=== PATIENT | male | born 1960 | race Caucasian/White ===

== ENCOUNTER → 2017-05-05 | Outpatient (CLI) | payer OTHER ==
[~2017-05-05] MED LIST: EXCEDRIN; NAPR-688
--- NOTE | 2017-05-06 11:54 | HKNOTE ---
DATE OF SERVICE: 05/05/2017 CHIEF COMPLAINT: Right knee pain. HISTORY OF PRESENT ILLNESS: This is a 56-year-old male who is complaining of chronic right knee luigi n. The pain is severe. He has difficulty performing his activities of daily living. He has difficu lty sitting in a car. He denies any groin or back pain. There is no radiation of the pain. He was previously scheduled for a right knee arthroscopy with Dr. Larry Rae. The pain is on the inside of the right knee. He has occasional locking of his knee. He has occasional instability. GAIT: Nonantalgic gait. No use of assist device. RIGHT KNEE: Neutral alignment, tender over the medial joint line, nontender over the lateral joint line, 0 to 120 degrees range of motion, stable to varus/valgus stress, positive Becka's medially, negative Shobha, negative anterior drawer, negative posterior drawer. Negative pivot shift. Motor strength 5/5 hamstrings, quadriceps, tibialis anterior, gastrocsoleus. Palpable pulses. MRI RIGHT KNEE: From 10/09/2014: There is a tear of the posterior horn of the medial meniscus. No tear is seen in the lateral meniscus. The cruciate ligament and the collateral ligaments are intac t. IMPRESSION: A 56-year-old male with a right knee posterior horn medial meniscus tear. PLAN: I explained to Mr. Olmos that his MRI is from 2-1/2 years ago. We will request authori zation for a new MRI of the right knee. We will also request authorization for a right knee arthros copic partial medial meniscectomy. He will return in 4 weeks. Dictated By: DARLENE PRICE/TANNA Conf#: [id number] DID#: [id number]
== END | disposition home or self-care (01) ==
LOC: HKI 14:02
PROVIDERS: ATTEND Orthopaedic Surgery Adult Reconstructive Orthopaedic Surgery
DX: M23.221 Derangement of posterior horn of medial meniscus due to old tear or injury, right knee (principal)
CPT/HCPCS: G0463

== ENCOUNTER → 2017-07-07 | Outpatient (CLI) | payer OTHER ==
--- NOTE | 2017-07-07 15:35 | HKNOTE ---
DATE OF SERVICE: 07/07/2017 HISTORY OF PRESENT ILLNESS: Mr. Olmos returns today for his preoperative evaluation. He is s cheduled for a right knee arthroscopy on 07/12/2017. Mr. Olmos states that he has been battli ng a lung infection for the last 4 months. He was recently started on oral antibiotics yesterday. He denies any fevers or chills. He has no other complaints. PHYSICAL EXAMINATION: EXTREMITIES: Right knee exam, neutral alignment. Tender over the medial joint line, nontender over the lateral joint line, 0 to 120 degrees range of motion. Positive Becka's. Negative Shobha. Negative anterior drawer. Negative posterior drawer. IMPRESSION: A 56-year-old male with a right knee posterior horn medial meniscus tear. PLAN: I explained to Mr. Olmos that I would like for him to clear his infection prior to surg efrain. I would like for him to complete his course of antibiotics. I also discussed the risks associ ated with surgery, which include but are not limited to infection, deep venous thrombosis, pulmonary embolism, damage to neurovascular structures, numbness, wound healing problems, progression of arth ritis, need for additional surgery in the future need for a total knee replacement, heart attack, st roke, risks associated with anesthesia and even . Informed consent was obtained. Dictated By: DARLENE PRICE/TANNA Conf#: [id number] DID#: [id number]
== END | disposition home or self-care (01) ==
LOC: HKI 13:46
PROVIDERS: ATTEND Orthopaedic Surgery Adult Reconstructive Orthopaedic Surgery
DX: Z01.818 Encounter for other preprocedural examination (principal); M23.221 Derangement of posterior horn of medial meniscus due to old tear or injury, right knee
CPT/HCPCS: G0463